=== PATIENT | male | born 1950 | race Two or more races ===

== ENCOUNTER 2025-04-27 06:23 | Day surgery (SDC) | payer MEDICARE, OTHER, SELFPAY | END 2025-04-27 15:24 | disposition home or self-care (01) | LOC: GI 06:23 | PROVIDERS: ATTENDING PHYSICIAN Internal Medicine Gastroenterology | DX: Z12.11 Encounter for screening for malignant neoplasm of colon (principal); R19.5 Other fecal abnormalities; K57.30 Diverticulosis of large intestine without perforation or abscess without bleeding; K64.8 Other hemorrhoids; D12.3 Benign neoplasm of transverse colon; D12.2 Benign neoplasm of ascending colon; D12.4 Benign neoplasm of descending colon; D12.5 Benign neoplasm of sigmoid colon | CPT/HCPCS: 45385; 45380; 88305 ==

== ENCOUNTER → 2025-05-04 12:00 | Outpatient (REF) | payer MEDICARE, OTHER, SELFPAY | LOC: RAD 12:00 | PROVIDERS: ATTENDING PHYSICIAN Nurse Practitioner Family | DX: R42 Dizziness and giddiness (principal); R26.89 Other abnormalities of gait and mobility | CPT/HCPCS: 70470; Q9967 ==